=== PATIENT | male | born 1985 | race Caucasian/White ===

== ENCOUNTER → 2020-05-28 | Outpatient (CLI) | payer OTHER ==
[~2020-05-28] MED LIST: GASTROGRAFIN SOLUTION 30ML (Q9963) As Ordered ONE; ISOVUE-370 76% 100ML VIAL As Ordered ONE; TH DTAB2 PO
--- NOTE | 2020-05-28 10:27 | REP ---
INDICATION: TESTICULAR CA COMPARISON: None TECHNIQUE: Axial contrast enhanced images from the thoracic inlet to the upper abdomen with 100 ml Isovue 370 intravenous contrast material followed by CT of the abdomen and pelvis. Coronal and sagittal reformations obtained. This CT examination was performed using the following dose reduction techniques: Automated exposure control, adjustment of mA and/or kv according to the patient's size, and use of iterative reconstruction technique. FINDINGS: Bilateral lung moore are well aerated and clear. No consolidation, significant nodule or mass lesion. No pleural effusion. No pneumothorax. Tracheobronchial tree is patent. No axillary, hilar, or mediastinal adenopathy. The mediastinum demonstrates normal thoracic aorta, pulmonary vasculature, and heart/pericardium. Surrounding musculoskeletal structures are intact. IMPRESSION: Normal contrast-enhanced chest CT. No acute mediastinal or pleuroparenchymal process. No evidence for metastatic disease or adenopathy. <Electronically signed by Sang Rivera > 05/28/20 1022
--- NOTE | 2020-05-28 10:30 | REP ---
INDICATION: TESTICULAR CA. COMPARISON: None TECHNIQUE: Axial contrast-enhanced images from the lung bases to the pubic symphysis using 100 cc Isovue 370 intravenous contrast material. Delayed images of the abdomen along with coronal and sagittal reformations obtained. This CT examination was performed using the following dose reduction techniques: Automated exposure control, adjustment of mA and/or kv according to the patient's size, and the use of iterative reconstruction technique. FINDINGS: Liver includes subtle subcentimeter hypodensity in the anterior segment right lobe which may represent small complex cyst and may be re-evaluated by ultrasound if necessary. No further hepatic lesions identified. Spleen, pancreas, gallbladder, bilateral adrenal glands and kidneys are normal. The enteric system including stomach, small, and large bowel appears normal. No evidence for obstruction or acute inflammatory process. Normal terminal ileum and appendix are identified in the right lower quadrant. Pelvis demonstrates normal bladder and age-appropriate prostate/seminal vesicles. Evidence for prior left orchiectomy noted. No ascites. No free air. No intraperitoneal or retroperitoneal adenopathy. Abdominal aorta and vasculature appear normal. Musculoskeletal structures are intact and without acute osseous abnormality. IMPRESSION: No acute abdominopelvic pathology appreciated. No evidence for metastatic disease, malignancy or obvious acute pathology. <Electronically signed by Sang Rivera > 05/28/20 [id number]
== END ==
LOC: M RAD 08:18
PROVIDERS: ATTEND Internal Medicine Hematology & Oncology
DX: C62.90 Malignant neoplasm of unspecified testis, unspecified whether descended or undescended (principal)
CPT/HCPCS: 71260; 74177; Q9963; Q9967

== ENCOUNTER → 2020-11-23 | Outpatient (CLI) | payer OTHER ==
[~2020-11-23] MED LIST changes: +NAPR-885 PO
--- NOTE | 2020-11-23 14:24 | REP ---
INDICATION: TESTICULAR CA. COMPARISON: 05/28/2020 TECHNIQUE: Bolus of 100 mL Isovue 370 scanning through the chest with the coronal and sagittal reconstructions. FINDINGS: The lung moore are well inflated. There are no nodules, infiltrates, pleural thickening, calcified pleural plaques, atelectasis or parenchymal mass. The heart is not enlarged and there is no pericardial thickening or effusion. The aorta is without aneurysm or dissection. The main, right and left pulmonary arteries in the mediastinum and the lobar arteries without filling defects. No mediastinal, hilar, axillary or supraclavicular pathologic sized adenopathy. Bony thorax shows the vertebral bodies and posterior elements, sternum, manubrium, visible clavicles, scapulae, humeral heads and ribs to be unremarkable. No hiatal hernia. Please see the CT abdomen report this date for discussion of the upper abdomen. IMPRESSION: Negative contrast-enhanced chest CT there is no mediastinal, parenchymal or pleural metastatic disease. No adenopathy. Bones intact. Stable exam. <Electronically signed by Cade Landry > 11/23/20 [id number]
--- NOTE | 2020-11-23 16:09 | REP ---
INDICATION: TESTICULAR CA. COMPARISON: 05/28/2020. TECHNIQUE: Oral Gastrografin mixture per our bowel contrast protocol and bolus 100 mL Isovue 370 scanning through the abdomen and pelvis. Delayed images through the abdomen. FINDINGS: CT abdomen: No hiatal hernia. The heart is not enlarged there is no pericardial thickening or effusion. The liver is not enlarged there is no hepatosplenomegaly, focal hepatic mass or intrahepatic lesion. No biliary dilatation or adjacent ascites. No splenomegaly or focal lesion. Adrenal glands are normal. Gallbladder shows no calcified stone or mass. Pancreas was unremarkable. Kidneys show symmetric enhancement without mass, stone or hydronephrosis. No hydroureter. The aorta shows no aneurysm or dissection. There is no periaortic, other retroperitoneal or mesenteric pathologic sized lymphadenopathy seen. Small bowel loops were unremarkable and contrast filled oral contrast reaches the mid transverse colon. There is no sign of colitis, diverticulitis, stricture or mass in the abdominal portion of colon. Lung window review of all CT slices shows no perforation or free air. No generalized ascites. Some disc space narrowing and vacuum phenomenon at the L5-S1 level but the bones of the lumbar and lower thoracic spine and their posterior elements otherwise unremarkable. Lower ribs are intact. CT pelvis: The bony sacrum, SI joints, pelvis and hips are without any acute finding. There is a sclerotic bone island in the acetabulum on the left unchanged. Stool and moderate volume the from the distal left colon through the rectosigmoid without colitis or diverticulitis. The bladder shows no mass, wall thickening or stone. No dilated distal ureter. Small bowel loops in the pelvis are unremarkable. Appendix is filled with oral contrast and unremarkable. There is no ventral or inguinal hernia nor pathologic sized inguinal adenopathy. Appears that the patient has had a left orchiectomy. IMPRESSION: Negative CT abdomen pelvis for intra-abdominal or pelvic adenopathy nor any other evidence for metastatic disease. Liver, spleen, pancreas and other organs all grossly unremarkable. Urinary tract unremarkable. Bones intact. <Electronically signed by Cade Landry > 11/23/20 [id number]
== END ==
LOC: M RAD 10:44
PROVIDERS: ATTEND Internal Medicine Hematology & Oncology
DX: C62.92 Malignant neoplasm of left testis, unspecified whether descended or undescended (principal)

== ENCOUNTER → 2021-06-14 | Outpatient (CLI) | payer OTHER | LOC: M RAD 13:48 | PROVIDERS: ATTEND Internal Medicine | DX: C62.90 Malignant neoplasm of unspecified testis, unspecified whether descended or undescended (principal); Z90.79 Acquired absence of other genital organ(s) | CPT/HCPCS: 71260; 74177; Q9963; Q9967 ==

== ENCOUNTER 2023-06-01 17:33 | Emergency (ER) | payer OTHER ==
[~2023-06-01] VITALS: Ht 180.3 cm; Wt 92.5 kg
[~2023-06-01 17:33] MED LIST changes: -GASTROGRAFIN SOLUTION 30ML (Q9963) As Ordered ONE; -ISOVUE-370 76% 100ML VIAL As Ordered ONE
[2023-06-01] MEDS ORDERED: IBUP200T46 PO (17:49)
[2023-06-01] MEDS ORDERED: BENZOCAINE 20% GEL 9GM TUBE (ANBESOL MAX STRENGTH) TOP ONE (21:45)
[2023-06-01] MEDS ORDERED: LIDOCAINE 2% W/ EPINEPHRINE 1.7 ML DENTAL INJ SM ONE (21:45)
[2023-06-01] MEDS ORDERED: dexAMETHasone 4 MG TAB PO ONE (22:05)
[2023-06-01] MEDS ORDERED: AMOX875T2 PO (22:05)
[2023-06-01 22:22] VITALS: BP 130/86; TEMP 98; O2SAT 98
== END 2023-06-01 22:26 | disposition home or self-care (01) ==
LOC: M ED 17:33
DX: K08.89 Other specified disorders of teeth and supporting structures (principal); Z88.8 Allergy status to other drugs, medicaments and biological substances; Z79.1 Long term (current) use of non-steroidal anti-inflammatories (NSAID); Z79.2 Long term (current) use of antibiotics

== ENCOUNTER 2023-07-20 21:06 | Emergency (ER) | payer OTHER ==
[~2023-07-20] VITALS: Ht 180.3 cm; Wt 92.0 kg
[~2023-07-20 21:06] MED LIST changes: +AMOX875T2 PO; +IBUP200T46 PO
[2023-07-21 01:14] VITALS: BP 135/79; TEMP 97.8; O2SAT 96
[2023-07-21] MEDS ORDERED: METH-1164 PO (01:48)
[2023-07-21] MEDS ORDERED: PRED20TA PO (01:48)
[2023-07-21] MEDS ORDERED: NAPR-837 PO (01:48)
[2023-07-21] MEDS: methocarbamoL 500 MG TAB PO ONE (01:56)
[2023-07-21] MEDS: predniSONE 20 MG TAB PO ONE (01:56)
[2023-07-21] MEDS: KETOROLAC 60MG 2ML VIAL IM ONE (01:57)
== END 2023-07-21 02:17 | disposition home or self-care (01) ==
LOC: M ED 21:06
DX: M51.26 Other intervertebral disc displacement, lumbar region (principal); Z88.8 Allergy status to other drugs, medicaments and biological substances; Z79.2 Long term (current) use of antibiotics; Z79.1 Long term (current) use of non-steroidal anti-inflammatories (NSAID); Z79.52 Long term (current) use of systemic steroids; Z79.899 Other long term (current) drug therapy
CPT/HCPCS: 72131; 96372; 99283; J1885; J7512

== ENCOUNTER 2024-09-12 12:56 | Emergency (ER) | payer OTHER ==
[~2024-09-12] VITALS: Ht 180.3 cm; Wt 88.5 kg
[~2024-09-12 12:56] MED LIST changes: +METH-1164 PO; +NAPR-837 PO; +PRED20TA PO
[2024-09-12] MEDS: ACETAMINOPHEN 325 MG TAB PO ONE (15:25)
[2024-09-12 17:23] VITALS: BP 120/71; TEMP 97.8; O2SAT 98
== END 2024-09-12 17:24 | disposition home or self-care (01) ==
LOC: M ED 12:56
DX: S06.0X0A Concussion without loss of consciousness, initial encounter (principal); B34.8 Other viral infections of unspecified site; Y92.9 Unspecified place or not applicable; Y93.9 Activity, unspecified; Y99.9 Unspecified external cause status; V18.0XXA Pedal cycle driver injured in noncollision transport accident in nontraffic accident, initial encounter; F10.10 Alcohol abuse, uncomplicated; Z88.8 Allergy status to other drugs, medicaments and biological substances; Z79.1 Long term (current) use of non-steroidal anti-inflammatories (NSAID)